=== PATIENT | male | born 2000 | race Caucasian/White ===

== ENCOUNTER → 2020-07-29 | Outpatient (CLI) | payer OTHER ==
--- NOTE | 2020-07-29 23:59 | MR ---
EXAMINATION TYPE: MR elbow LT wo con DATE OF EXAM: 07/29/2020 COMPARISON: None HISTORY: Medial left elbow pain Multiplanar multiecho imaging of the left elbow was performed with no contrast. The collateral ligaments at the elbow appear intact. There is no evidence of elbow joint effusion. Tr iceps tendon is intact. The brachialis tendon is intact. Biceps tendon is intact. There is no evidenc e of a soft tissue mass. Radius and ulna appear intact. Distal humerus is intact. There is no evidence of a fracture. IMPRESSION: Normal MR scan of the left elbow. No evidence of ligament or tendon tear.
== END | disposition home or self-care (01) ==
LOC: RADMRIMAIN 15:31
DX: S53.4 Sprain of elbow (principal)